=== PATIENT | female | born 1960 | race Asian ===

== ENCOUNTER 2020-01-29 08:39 | Day surgery (SDC) | payer OTHER, SELFPAY ==
[~2020-01-29] VITALS: Ht 152.4 cm; Wt 63.5 kg
[2020-01-29] MEDS ORDERED: LIDOCAINE 2%, 20 ML MDV INJ ONE (08:40)
[2020-01-29] MEDS ORDERED: NS 50 ML BAG IV ONE (08:40)
[2020-01-29] MEDS ORDERED: IOPAMIDOL 50 ML VIAL IV ONE (08:40)
[2020-01-29] MEDS ORDERED: BUPIVACAINE /PF 0.25% 30 ML VIAL INJ ONE (08:40)
[2020-01-29] MEDS ORDERED: methylPREDNISolone ACETATE 80 MG/ML IM ONE (08:40)
[2020-01-29] MEDS ORDERED: MIDAZOLAM HCL 5 MG/5 ML VIAL ONE (08:46)
[2020-01-29] MEDS ORDERED: DIPHENHYDRAMINE INJ 50 MG/ML VIAL ONE (08:47)
[2020-01-29 10:48] VITALS: BP_SYST 129
== END 2020-01-29 11:20 | disposition home or self-care (01) ==
LOC: SDS 08:39 → SMU 08:40 → SDS 11:20
PROVIDERS: ATTEND Internal Medicine
DX: M54.16 Radiculopathy, lumbar region (principal); M48.00 Spinal stenosis, site unspecified; G89.4 Chronic pain syndrome; Z11.59 Encounter for screening for other viral diseases; Z79.899 Other long term (current) drug therapy
CPT/HCPCS: 62323; J1040; J1200; J2001; J2250; J3490; J7120; Q9967; U0003; 76000